=== PATIENT | female | born 1980 | race Caucasian/White ===

== ENCOUNTER → 2019-04-15 | Outpatient (CLI) | payer OTHER, SELFPAY ==
--- NOTE | 2019-04-15 08:02 | RAD_ITS ---
STUDY: AIR-CONTRAST UPPER GI SERIES AND SMALL BOWEL FOLLOW-THROUGH EXAMINATION. REASON FOR EXAM: Female, 38 years old. Epigastric pain and discomfort. FLUOROSCOPY TIME (if supplied): (3:24) minutes/seconds TECHNIQUE: The patient ingested barium. Multiple images of the esophagus, stomach and duodenum were obtained. Following this, a small bowel follow-through examination was performed. COMPARISON: None. FINDINGS: The esophagus is unremarkable. There is no evidence of obstruction. No evidence of gas esophageal reflux or mass lesion. The stomach and duodenum are unremarkable. There is no evidence of ulceration. No mass lesion is present. A small bowel follow-through examination was then obtained. The small bowel transit is normal. There is no evidence of intrinsic or extrinsic small bowel disease. The terminal ileum is unremarkable. RAD/Upper GI/w Small Bowel IMPRESSION: Unremarkable air contrast upper GI series and small bowel follow-through examination. Electronically Signed: Scott Copeland, at 12:33 EDT , Service support ,
== END | disposition home or self-care (01) ==
LOC: RAD 08:01
PROVIDERS: Family Provider Student in an Organized Health Care Education/Training Program; PCP Student in an Organized Health Care Education/Training Program; Referring Provider Nurse Practitioner Family; Visit Provider Nurse Practitioner Family
DX: R10.13 Epigastric pain (principal)
CPT/HCPCS: 74249

== ENCOUNTER → 2019-05-10 | Outpatient (CLI) | payer OTHER, SELFPAY ==
--- NOTE | 2019-05-10 11:40 | IMM_PTH ---
PATIENT: JANAY MARRERO LOC: [facility] U#:[id number] AGE/SX: 38/F ROOM: RE05/10/[address]: Dr. Enrike Fall MD : 1980 BED: DIS: 05/10/2019 SPEC #: [id number] RECD: 05/11/19 11:33 STATUS: MARYSE REQ #: [id number] BRENDA: 05/10/19 11:[address]: Enrike Fall DEPT: IMMUNOHISTOCHEMISTRY RECD BY: Nu Sumner ENTERED: 05/11/19 11:35 SP TYPE: IMMUNO OTHR DR: Dr. Cody So DO Tissues: B - Stomach, NOS Procedures: H Pylori (initial) PHYSICIAN & INSTITUTION [place] [id number] SPECIMEN INFORMATION: Tissue Source: B - Antral biopsy Clinical Info: K30 Specimen Number: [id number] CPT code: 28997 METHODOLOGY: Deparaffinized sections of prefer/formalin-fixed tissue or PAP/DQ stained slides are incubated with monoclonal/polyclonal antibodies/oligonucleotide probes. Localization is made via biotin free immunoperoxidase method. Appropriate controls are performed and reacted as expected. Results on target cell population are indicated in the following table: RESULTS: ANTIBODY / CLONE RESULT Block B H Pylori (polyclonal) negative These tests were developed and their performance characteristics determined by [facility]. They may not have been cleared or approved by the U.S. Food and Drug Administration. The FDA has determined that such clearance or approval is not necessary. INTERPRETATION: B. Antral biopsy: Negative for Helicobacter pylori organisms. SJ:bnoi 05/12/19
--- NOTE | 2019-05-10 11:40 | EGD_PTH ---
PATIENT: JANAY MARRERO LOC: [facility] U#:[id number] AGE/SX: 38/F ROOM: RE05/10/[address]: Dr. Enrike Fall MD : 1980 BED: DIS: 05/10/2019 SPEC #: [id number] RECD: 05/10/19 17:11 STATUS: MARYSE REGirma #: [id number] BRENDA: 05/10/19 11:[address]: Enrike Fall DEPT: SURGICAL PATHOLOGY RECD BY: Gumaro Nelson ENTERED: 05/11/19 09:34 SP TYPE: EGD BIOPSY OTHR DR: Dr. Cody So DO Tissues: A - Jejunum, NOS B - Gastric mucous membrane C - Gastric mucous membrane D - Gastric mucous membrane Procedures: Special Stain Group II Surgery Specimen Level IV Alcian Blue/PAS (control) HEADER OPERATION: EGD with biopsy PRE-OP DIAGNOSIS: K30 TISSUE SUBMITTED: A - Jejunal biopsy, B - Antral biopsy H/H, C - Gastric polyp, D - GE junction biopsy MICROSCOPIC DIAGNOSIS A. Jejunal biopsy: Fragments of duodenal mucosa, no pathologic diagnosis. B. Antral biopsy: Mild gastritis. See microscopic description and comment. C. Gastric polyp, biopsy: Consistent with fundic gland polyp. D. GE junction, biopsy: A fragment of gastroesophageal mucosa with chronic inflammation, congestion and hemorrhage. Intestinal metaplasia (goblet cell metaplasia) is not identified. See comment. SJ:boni 05/12/19 COMMENT B. The results of immunohistochemistry for Helicobacter pylori will be reported separately ([id number]). D. Alcian blue/PAS stain with matched control is used in the evaluation of the specimen. MICROSCOPIC DESCRIPTION Slides are reviewed. B. The specimen shows fragments of gastric mucosa with chronic inflammatory cell infiltrates in the lamina propria consisting of lymphocytes and plasma cells, consistent with mild chronic gastritis. GROSS DESCRIPTION A - Received in fixative is one container labeled with the patient's name and designated jejunal biopsy. The specimen consists of two irregular fragments of light rincon soft tissue that in aggregate measure 0.4 x 0.2 x 0.1 cm. The specimen is totally submitted in one cassette. B - Received in fixative is one container labeled with the patient's name and designated antral biopsy. The specimen consists of one irregular fragment of light rincon soft tissue that measures 0.4 x 0.3 x 0.1 cm. The specimen is totally submitted in one cassette. C - Received in fixative is one container labeled with the patient's name and designated gastric polyp. The specimen consists of one irregular fragment of light rincon soft tissue that measures 0.3 x 0.3 x 0.1 cm. The specimen is totally submitted in one cassette. D - Received in fixative is one container labeled with the patient's name and designated GE junction biopsy. The specimen consists of one irregular fragment of light rincon soft tissue that measures 0.4 x 0.2 x 0.1 cm. The specimen is totally submitted in one cassette. / SJ:rg 05/11/19 TC:3 CPT: 72806 x4, 93725
== END | disposition home or self-care (01) ==
LOC: LABSPEC 05-11 08:21
PROVIDERS: Family Provider Student in an Organized Health Care Education/Training Program; PCP Student in an Organized Health Care Education/Training Program; Referring Provider Surgery; Visit Provider Surgery
DX: K52.9 Noninfective gastroenteritis and colitis, unspecified (principal)
CPT/HCPCS: 88305; 88313; 88342

== ENCOUNTER → 2024-04-06 | Outpatient (CLI) | payer OTHER, SELFPAY ==
[2024-04-06 12:22] LABS: Vitamin D,25 Hydroxy 51.8 ng/mL
[2024-04-06 12:23] LABS: Absolute Lymphocyte Count 1.77 X10^3/uL (0.83-4.51); Absolute Neutrophil Count 3.7 X10^3/uL (2.0-7.7); Basophil# 0.04 X10^3/uL; Basophil% 0.7 % (0-1); Eosinophil# 0.06 X10^3/uL; Hematocrit 39.6 % (37-47); Lymphocyte # 1.77 X10^3/ul (0.83-4.51); Lymphocyte % 28.9 % (19-41); Mean Corp Hgb Conc 32.8 g/dL (32-36); Mean Corpuscular Hgb 29.6 pg (27.0-32.0); Mean Corpuscular Volume 90.2 fL (81-99); Mean Platelet Vol. 9.5 fl (6.2-12.0); Monocyte# 0.56 X10^3/uL; Monocyte% 9.2 % (0-10); NRBC Flagged by Analyzer 0 % (0-5); Neutrophil # 3.67 X10^3/uL (2.7-7.7); Neutrophil % 59.9 % (47-70); Platelet Count 304 K/mm3 (150-450); RBC Distribution Width CV 13.1 % (11.6-14.6); Red Blood Count 4.39 M/mm3 (4.2-5.4); White Blood Count 6.1 K/mm3 (4.4-11.0)
[2024-04-06 12:45] LABS: AST(SGOT) 15 U/L (15-37); Alanine Aminotransfer ALT/SGPT 26 U/L (13-56); Albumin, Serum 3.6 g/dL (3.2-5.0); Alkaline Phosphatase 85 U/L (45-117); Anion Gap 6 (5-15); BUN 12 mg/dL (7-18); BUN/Creat Ratio 12.8 RATIO (10-20); Calcium,Total 8.6 mg/dL (8.5-10.1); Chloride 107 mmol/L (98-107); Cholesterol 187 mg/dL (200); Creatinine, Serum 0.94 mg/dL (0.55-1.02); EST Glomerular Filtration Rate 69 mL/min (>60); Est Glom Filt Rate - Afr Amer 83 mL/min (>60); Ferritin 29 ng/mL (8-252); Globulin 3.7 g/dL (2.2-4.2); Glucose 94 mg/dL (74-106); High Density Lipoprotein 40 mg/dL; Iron 47 ug/dL (50-170); Iron Binding Capacity,Total 338 ug/dL (250-450); PERCENT IRON SATURATION 13.9 % (15.0-55.0); Protein, Total 7.3 g/dL (6.4-8.2); Sodium Level 138 mmol/L (136-145); Thyroid Stim Hormone (TSH) 1.91 uIU/mL (0.358-3.74); Triglycerides 135 mg/dL; Very Low Density Lipoprotein 27 mg/dL (5-40)
== END | disposition home or self-care (01) ==
LOC: BIMLAB 08:18
PROVIDERS: PCP Internal Medicine; Referring Provider Internal Medicine; Visit Provider Internal Medicine
DX: R53.83 Other fatigue (principal); K21.9 Gastro-esophageal reflux disease without esophagitis; E56.9 Vitamin deficiency, unspecified; Z13.6 Encounter for screening for cardiovascular disorders
CPT/HCPCS: 36415; 80053; 80061; 82306; 82728; 83540; 83550; 84443; 85025

== ENCOUNTER → 2024-07-12 | Outpatient (CLI) | payer OTHER, SELFPAY ==
--- NOTE | 2024-07-12 07:30 | BI_ITS ---
MAMMOGRAPHY - BILATERAL SCREENING 3-D TOMOSYNTHESIS REASON FOR EXAM: Female, 44 years old. screening PERTINENT HISTORY: No significant family history. TECHNIQUE: 2-D mammograms and 3-D Tomosynthesis of the breast (s) were performed. CAD was performed. COMPARISON: 12/05/2021 FINDINGS: The breast composition is Extermely dense tissue. Scattered benign calcifications are seen. No dense spiculated masses or suspicious microcalcifications are identified. No architectural distortion is identified. There is no skin thickening or retraction. There has been no significant change since the prior study. BI/SCRN MAMM (CAD)W/ARMIN BILAT IMPRESSION: No mammographic signs of malignancy. Routine yearly mammograms recommended. ASSESSMENT CATEGORY: BIRADS Category 1: Negative. A letter regarding these results will be sent to the patient by the facility within 30 days. FOLLOW UP RECOMMENDATION: Yearly follow up mammogram recommended. (A) Approximately 10% of breast cancers are not detected by mammography. A normal mammogram should not delay biopsy of a clinically suspicious abnormality. Electronically Signed: Enrike Boland MD at 8:33 EDT ,
== END | disposition home or self-care (01) ==
LOC: OPBI 07:30
PROVIDERS: PCP Internal Medicine; Referring Provider Internal Medicine; Visit Provider Internal Medicine
DX: Z12.31 Encounter for screening mammogram for malignant neoplasm of breast (principal)
CPT/HCPCS: 77063; 77067

== ENCOUNTER → 2024-09-01 | Outpatient (CLI) | payer OTHER, SELFPAY ==
[2024-09-07 16:06] LABS: HPV APTIMA, High Risk Negative (Negative)
== END | disposition home or self-care (01) ==
LOC: LABSPEC 10:48
PROVIDERS: PCP Internal Medicine; Referring Provider Nurse Practitioner Family; Visit Provider Nurse Practitioner Family
DX: Z12.4 Encounter for screening for malignant neoplasm of cervix (principal)
CPT/HCPCS: 87624; 88175; G0145

== ENCOUNTER → 2024-09-13 | Outpatient (CLI) | payer OTHER, SELFPAY ==
--- NOTE | 2024-09-13 12:27 | US_ITS ---
STUDY: ULTRASOUND OF THE FEMALE PELVIS - COMPLETE REASON FOR EXAM: Female, 44 years old. pelvic pain LMP: 09/06/2024 TECHNIQUE: Transabdominal and Transvaginal TECHNICAL QUALITY: Adequate. COMPARISON: None. FINDINGS: The uterus is retroflexed and is in a midline position. The uterus measures 7.8 x 4.9 x 4.0 cm. Normal uterine cervix. The endometrium measures 9 mm in thickness, and is hyperechoic. There is no demonstrated endometrial mass. There is no demonstrated myometrial mass. I.U.D. - The patient does not have an I.U.D. The right ovary is visualized. The right ovary measures 3.1 x 2.2 x 2.4 cm. There is no right ovarian cyst or ovarian mass. There is no visualized right adnexal mass or complex lesion. There is normal arterial and normal venous vascularity. The left ovary is visualized. The left ovary measures 3.2 x 2.3 x 2.2 cm. There is no left ovarian cyst or ovarian mass. There is no visualized left adnexal mass or complex lesion. There is normal arterial and normal venous vascularity. There is no fluid in the cul-de-sac. The pre void volume of the bladder was ml. The post void volume of the bladder was ml. Polycystic ovary disease: No. US/Pelvic w/ Transvaginal IMPRESSION: Normal female pelvis. Electronically Signed: Enrike Bloand MD at 13:26 EST ,
--- NOTE | 2024-09-13 12:27 | US_ITS ---
STUDY: ULTRASOUND BREAST - RIGHT REASON FOR EXAM: Female, 44 years old. Lateral breast lumps. Prior biopsy. TECHNIQUE: Axial and longitudinal images of the RIGHT breast were performed with a high resolution ultrasound transducer. # OF IMAGES: [id number] COMPARISON: None. FINDINGS: RIGHT Breast: There is a 8mm by 8 mm x 6 mm hypoechoic nodule at the 10:00 position of the breast at 1 cm from the nipple. A tissue clip marker is seen within it. There is also evidence of a 1 cm x 0.9 cm x 0.7 cm hypoechoic nodule with central internal echoes at the 9:00 position of the breast at 2 cm from the nipple. This is suggestive of a lymph node. US/Breast Limited Unilateral IMPRESSION: 8 mm x 8 mm x 6 mm hypoechoic nodule at the 10:00 position of the breast is 7 cm from nipple. A biopsy clip is seen within it. ASSESSMENT CATEGORY: BIRADS Category 2: Benign. A letter regarding these results will be sent to the patient by the facility within 30 days. Electronically Signed: Scott Copeland MD at 15:16 EST ,
== END | disposition home or self-care (01) ==
LOC: OPUS 12:23
PROVIDERS: PCP Internal Medicine; Referring Provider Nurse Practitioner Family; Visit Provider Nurse Practitioner Family
DX: R10.2 Pelvic and perineal pain (principal); N63.12 Unspecified lump in the right breast, upper inner quadrant
CPT/HCPCS: 76642; 76830; 76856

== ENCOUNTER 2024-11-15 08:32 | Outpatient (CLI) | payer OTHER, SELFPAY ==
[2024-11-15 09:47] LABS: Erythrocyte Sedimentation Rate 7 mm/hr (0-30)
[2024-11-15 10:23] LABS: CRP 3.47 mg/L (0.0-3.0)
[2024-11-19 17:07] LABS: Alternaria alternata <0.10 kU/L (Class 0); Beef <0.10 kU/L (Class 0); Bermuda Grass <0.10 kU/L (Class 0); Bluegrass, Kentucky <0.10 kU/L (Class 0); Cat Hair/Dander, Standard <0.10 kU/L (Class 0); Chocolate <0.10 kU/L (Class 0); Codfish <0.10 kU/L (Class 0); Corn <0.10 kU/L (Class 0); D farinae Mite <0.10 kU/L (Class 0); D pteronyssinus <0.10 kU/L (Class 0); Dog Epithelia <0.10 kU/L (Class 0); Egg, Whole <0.10 kU/L (Class 0); Elm, American White <0.10 kU/L (Class 0); Milk (Cow) <0.10 kU/L (Class 0); Mouse Urine <0.10 kU/L (Class 0); Mussels <0.10 kU/L (Class 0); Oak, White <0.10 kU/L (Class 0); Peanut <0.10 kU/L (Class 0); Plantain, English <0.10 kU/L (Class 0); Pork <0.10 kU/L (Class 0); Ragweed, Short/Common <0.10 kU/L (Class 0); Salmon <0.10 kU/L (Class 0); Shrimp <0.10 kU/L (Class 0); Soybean <0.10 kU/L (Class 0); Tuna <0.10 kU/L (Class 0); Wheat <0.10 kU/L (Class 0)
[2024-11-20 15:07] LABS: Albumin 3.5 g/dL (2.9-4.4); Alpha-1-Globulins 0.2 g/dL (0.0-0.4); Alpha-2-Globulins 0.9 g/dL (0.4-1.0); Cytoplasmic Ab (C-ANCA) <1:20 titer (Neg:<1:20); Endomysial Antibody IgA Negative (Negative); Gamma Globulin 1.1 g/dL (0.4-1.8); Gastrin, Serum 231 pg/mL (0-115); Immunoglobulin A 275 mg/dL (87-352); Immunoglobulin E 7 IU/mL (6-495); Immunoglobulin G 977 mg/dL (586-1602); Immunoglobulin M 143 mg/dL (26-217); PROEL- TOTAL PROTEIN 6.9 g/dL (6.0-8.5); Perinuclear Ab (P-ANCA) <1:20 titer (Neg:<1:20); t-Transglutaminase IgA <2 U/mL (0-3)
== END 2024-11-15 23:59 | disposition home or self-care (01) ==
PROVIDERS: PCP Internal Medicine; Referring Provider Internal Medicine Gastroenterology; Visit Provider Internal Medicine Gastroenterology
DX: K21.9 Gastro-esophageal reflux disease without esophagitis (principal)
CPT/HCPCS: 36415; 82784; 82785; 82941; 83516; 84165; 85652; 86003; 86005; 86037; 86140; 86255; 86334

== ENCOUNTER → 2025-02-06 | Outpatient (CLI) | payer OTHER, SELFPAY ==
--- NOTE | 2025-02-06 10:20 | NM_ITS ---
PROCEDURE: GASTRIC EMPTYING STUDY 02/06/2025 REASON FOR EXAM: REFRACTORY GERD COMPARISON: None. TECHNIQUE: The patient ingested a standard meal of oatmeal and technetium labeled sulfur colloid and water. There was no vomiting postprandially. Anterior and posterior planar images of the upper abdomen were obtained for 1 minute immediately following the meal at 1h, 2h and 4h if more than 10% of the activity persisted within the stomach. Regions of interest were drawn, and a geometric mean was used to calculate a [id number]-tpira. RADIOPHARMACEUTICAL: 1.2 mCi of technetium labeled sulfur colloid. FINDINGS: Percent activity remaining in stomach: 1 hour 71 % (normal 37-90%) NM/Gastric Emptying Study IMPRESSION: Normal gastric emptying study. Reading Location: [id number]
== END | disposition home or self-care (01) ==
PROVIDERS: PCP Internal Medicine; Referring Provider Internal Medicine Gastroenterology; Visit Provider Internal Medicine Gastroenterology
DX: K21.9 Gastro-esophageal reflux disease without esophagitis (principal)
CPT/HCPCS: 78264; A9541

== ENCOUNTER 2025-02-23 08:57 | Day surgery (SDC) | payer OTHER, SELFPAY ==
[2025-02-23] VITALS (8 sets, daily range): BP systolic 77–118; BP diastolic 45–84; PULSE 75–88; RESP 16; TEMP 36–37.2; O2SAT 96–100; BMI 30.8
[2025-02-23 09:18] LABS: Internal QC Validated? YES +Cl - CLEAR BKGD; Pregnancy, Urine Negative Negative
--- NOTE | 2025-02-23 09:31 | PCM.HP.STD ---
HPI - General General Date of Admission: 02/23/25 Date of Service: 02/23/25 Chief Complaint: Screening colonoscopy HPI Narrative JANAY MARRERO, is a 44 F who presents for screening colonoscopy. *[facility] established 2.18.25 pt presents today for evaluation prior to colonoscopy. Pt states I'm 44 so it's time for a colonoscopy. Pt reports that she had an EGD in 2019 with [facility] when she was diagnosed with acid reflux; has been taking PRN Nexium. Pt reports alternating bowel movements; reports constipation when she doesn't drink enough and diarrhea when she eats certain foods. Pt reports she is unsure which foods she has sensitivities to. Pt reports a daily bm. Pt reports increased bloating in the evening due to being unable to burp. ROS Const Constitutional: Positive for fatigue; No fever(s) or weight change ENT ENT: No difficulty swallowing Gastro GI: Positive for bloating, constipation, diarrhea, heartburn and excessive flatus; No abdominal pain, belching, change in bowel habits, change in stool character, coffee ground emesis, cramping, difficulty swallowing, feeling full early, incontinent of stools, Vomiting blood/hematemesis, Blood in stool, loose stools, Black,tarry stools, nausea/dyspepsia, pain with swallowing, vomiting or other Musc Musculoskeletal: No joint pain Skin Skin: No yellowing of the eye or itchy eyes Psych Psychiatric: Positive for anxiety and No depression Endo Endocrine: Positive for fatigue; No weight change Aller/Imm Allergy/Immunologic: No itchy eyes Brent/Lymp Hematologic/Lymphatic: No easy bleeding or easy bruising Exam Const General: cooperative, healthy appearing, no acute distress, well developed, not diaphoretic and not ill appearing Nutritional Appearance: well nourished Orientation: alert and oriented x3 Limitations: mental status not altered [facility] Head: normal to inspection, normocephalic and atraumatic Ears: hearing grossly normal bilaterally Face and sinus: normal facial exam Mouth: oral mucosae normal and moist mucous membranes Teeth and gingiva: dentition normal Throat: posterior oropharynx normal Eyes Conjunctivae: conjunctivae normal Sclera: sclerae normal Pupils: PERRL Chest Chest palpation & inspection: normal inspection of the chest Resp Effort & Inspection: normal respiratory effort, able to speak in complete sentences, no audible wheezes and no cough Auscultation: Bilateral: Clear to Auscultation Cardio Rate: regular rate Rhythm: regular rhythm Heart Sounds: S1 normal, S2 normal and no murmurs GI Inspection: non-distended Auscultation: normal bowel sounds Palpation: soft, no hepatosplenomegaly and nontender Skin General: no rashes or lesions noted and dry skin Wounds: no wounds Neuro General: patient alert and patient oriented x3 Cranial Nerves: PERRL Speech: speech normal Extrem General: normal to inspection and no edema Psych Appearance: grossly normal Affect: normal affect Attitude: cooperative Assessment and Plan Assessment and Plan (1) GERD (gastroesophageal reflux disease): Status: Acute (2) Screening for colon cancer: Status: Acute Plan: Is a very pleasant 44-year-old with past medical history of gastroesophageal reflux disease. She underwent an upper endoscopy back in 2019 and was told that she had LA grade B erosive esophagitis. Since then she has been on intermittent Nexium. She does not know if she has any delayed gastric emptying or hiatal hernia. She does suspect that she had a least a lower esophageal sphincter that was lax. She does also have some sensitivities particularly with onions, spicy foods and processed foods. Her weight has been about the same. She has no family history of inflammatory bowel disease or autoimmune disease affecting her GI tract. She has no family history of esophageal cancer. She does not smoke. She is also here to set up a screening colonoscopy. She does have some intermittent problems with alternating bowel habits but is mostly secondary to lack of proper fluid intake on a daily basis. She has had no change in bowel habits. She has had no bleeding per rectum. She denies any severe constipation or diarrhea. Her weight has been stable. She has no alarm signs at this time. She will undergo an upper endoscopy to evaluate upper GI tract for Leggett's esophagus, structural abnormality such as hiatal hernia, erosive esophagitis, gastroparesis and possible celiac disease. I will also get biochemical testing including food allergy testing, globulins, ESR, CRP, GALA plus protein electrophoresis and a gastric emptying study. She will also undergo colonoscopy. She was explained alternatives, risk and benefits include understanding bleeding on touch, sepsis complicated for surgery . She will have an ASA of 3. Orders: Orders GALA + Protein Elect, Serum Today K21.9 - Gastro-esophageal reflux disease without esophagitis Celiac Disease Profile Today K21.9 - Gastro-esophageal reflux disease without esophagitis ANCA Today K21.9 - Gastro-esophageal reflux disease without esophagitis CRP Today K21.9 - Gastro-esophageal reflux disease without esophagitis Erythrocyte Sed Rate Today K21.9 - Gastro-esophageal reflux disease without esophagitis Immunoglobulins G/A/M/E Today K21.9 - Gastro-esophageal reflux disease without esophagitis Gastrin, Serum Today K21.9 - Gastro-esophageal reflux disease without esophagitis Allergen, Food Profile 14 Today K21.9 - Gastro-esophageal reflux disease without esophagitis Allergen, Mini-Rast Today K21.9 - Gastro-esophageal reflux disease without esophagitis Gastric Emptying Study Today K21.9 - Gastro-esophageal reflux disease without esophagitis [facility] Medical History Wears contact lenses Wears glasses Anxiety Bite from insect Low iron Restless legs Gastric reflux Chronic cough Non-smoker History of stress test History of irregular heartbeat Vitamin deficiency Hives GERD (gastroesophageal reflux disease) Gastrointestinal complaints Breast lump (09/12/19) Bone fracture Back problem Allergies Home Medications ?Medication ?Instructions ?Recorded ?Last Taken ?Type cholecalciferol (vitamin D3) 25 25 mcg PO DAILY 04/05/24 Unknown History mcg (1,000 unit) capsule ferrous sulfate 325 mg (65 mg 325 mg PO DAILY 04/05/24 Unknown History iron) tablet (FeroSul) multivitamin (Daily Multi-Vitamin 1 tab PO DAILY 04/05/24 Unknown History tablet) esomeprazole magnesium 40 mg 40 mg PO DAILY PRN dyspepsia 11/15/24 Unknown History capsule,delayed release (Nexium) Allergy/AdvReac Type Severity Reaction Status Date / Time ranitidine Allergy Intermediate Hives Verified 02/17/25 16:08 Family History Mother Age: 77 Diabetes Osteoporosis Anesthesia complication low oxygen Hypertension Thyroid disorder Cancer multiple myeloma Central sleep apnea Father Age: 76 Diabetes High cholesterol Asthma Cancer prostate Grandmother Anemia Polymyalgia Diabetes Heart disease Brother Asthma Grandfather Heart disease Grandfather Myocardial infarction Heart disease Hypertension Cancer skin Ulcer Colon cancer Aunt Thyroid disorder Surgical History History of esophagogastroduodenoscopy (EGD) History of surgery H/O toe surgery History of breast biopsy (11/10/19) Social History adopted: No household members: spouse current occupational status: employed 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 [employer] pets and animals: Yes pets and animals: cat(s) leisure activities: exercise, games, reading and volunteer work sexually active: No Smoking Status: Never smoker Electronic Cigarette Use: not used alcohol intake: former details: is not allowed due to work substance use type: does not use well-balanced diet: about half the time caffeine: No eating out: 4 or more times/week during the past year weight has: remained stable what type of physical activity do you participate in: walking frequency: 3-4 times per week seatbelt use: always do you feel safe at home: Yes ROS Constitutional Constitutional: Denies fatigue, fever(s), poor appetite, weight gain or weight loss Gastrointestinal Gastrointestinal: Denies belching, bloating, change in bowel habits, change in stool character, chewing difficulty, coffee ground emesis, constipation, cramping, diarrhea, dyspepsia, dysphagia, early satiety, excessive flatus, fecal incontinence, heartburn, hematemesis, hematochezia, hemorrhoids, loose stools, melena, nausea, odynophagia, rectal bleeding, tenesmus, vomiting or weight changes Vital Signs Vital Signs Vital Signs: 02/23/25 09:19 02/23/25 09:19 Temperature 98.9 F Temperature Source Temporal Respiratory Rate 16 Respiratory Pattern Normal Blood Pressure 118/84 H Blood Pressure Mean 95 Blood Pressure Source Monitor Blood Pressure Position Semi-Fowlers Blood Pressure Location Right Arm Pulse Ox 100 Weight Weight: 185 lb 3.013 oz Body Mass Index (BMI) 30.8 Physical Exam Const alert, oriented x3, no apparent distress and healthy appearing General Appearance: cooperative GI normal to inspection, nondistended, normoactive bowel sounds, soft to palpation, non-tender and non-distended Percussion: normal to percussion Rectal Exam: deferred Results Lab / Micro Data Labs: Laboratory Results - last 24 hr 02/23/25 09:05: Urine Test Negative Assessment & Plan Assessment/Plan (1) Screening for colon cancer: PLAN: Assessment and Plan Assessment and Plan (1) GERD (gastroesophageal reflux disease): Status: Acute (2) Screening for colon cancer: Status: Acute Plan: Is a very pleasant 44-year-old with past medical history of gastroesophageal reflux disease. She underwent an upper endoscopy back in 2019 and was told that she had LA grade B erosive esophagitis. Since then she has been on intermittent Nexium. She does not know if she has any delayed gastric emptying or hiatal hernia. She does suspect that she had a least a lower esophageal sphincter that was lax. She does also have some sensitivities particularly with onions, spicy foods and processed foods. Her weight has been about the same. She has no family history of inflammatory bowel disease or autoimmune disease affecting her GI tract. She has no family history of esophageal cancer. She does not smoke. She is also here to set up a screening colonoscopy. She does have some intermittent problems with alternating bowel habits but is mostly secondary to lack of proper fluid intake on a daily basis. She has had no change in bowel habits. She has had no bleeding per rectum. She denies any severe constipation or diarrhea. Her weight has been stable. She has no alarm signs at this time. She will undergo an upper endoscopy to evaluate upper GI tract for Leggett's esophagus, structural abnormality such as hiatal hernia, erosive esophagitis, gastroparesis and possible celiac disease. I will also get biochemical testing including food allergy testing, globulins, ESR, CRP, GALA plus protein electrophoresis and a gastric emptying study. She will also undergo colonoscopy. She was explained alternatives, risk and benefits include understanding bleeding on touch, sepsis complicated for surgery . She will have an ASA of 3. Orders: Orders GALA + Protein Elect, Serum Today K21.9 - Gastro-esophageal reflux disease without esophagitis Celiac Disease Profile Today K21.9 - Gastro-esophageal reflux disease without esophagitis ANCA Today K21.9 - Gastro-esophageal reflux disease without esophagitis CRP Today K21.9 - Gastro-esophageal reflux disease without esophagitis Erythrocyte Sed Rate Today K21.9 - Gastro-esophageal reflux disease without esophagitis Immunoglobulins G/A/M/E Today K21.9 - Gastro-esophageal reflux disease without esophagitis Gastrin, Serum Today K21.9 - Gastro-esophageal reflux disease without esophagitis Allergen, Food Profile 14 Today K21.9 - Gastro-esophageal reflux disease without esophagitis Allergen, Mini-Rast Today K21.9 - Gastro-esophageal reflux disease without esophagitis Gastric Emptying Study Today K21.9 - Gastro-esophageal reflux disease without esophagitis
[2025-02-23] MEDS: Lactated Ringers 1,000 ML 15 ML IV (09:36)
--- NOTE | 2025-02-23 09:50 | PCM.PRE.AN2 ---
ASA Classification* ASA Classification ASA Classification: 2 (GERD, anemia) Assessment & Plan Anesthesia* Anesthesia Assessment Anesthesia Assessment: Discussed sedation and/or anesthesia options, risks, benefits, and alternatives with patient/parents/legal guardian/POA. Questions invited. The patient/parents/legal guardian/POA seems to understand and agrees to proceed with anesthesia plan. Reviewed the physical assessment, medical history, allergy history and patient home medications list prior to surgery/procedure/anesthetic and documented any changes. Performed airway and anesthesia risk assessments. Anesthesia Type Anesthesia Type: General History Source History Obtained from:: Patient and Chart Anesthesia Focused Assessment* Temperature: 98.9 F Pulse Rate: 82 Blood Pressure: 118/84 Respiratory Rate: 16 Pulse Ox: 100 Oxygen Delivery Method: Room Air Airway Assessment Mouth opens: >3 cm Mallampati Score: II Teeth Condition: Intact Neck Range of motion (ROM): Full ROM Focused Labs Anesthesia Preop lab: CBC WBC 6.1 K/mm3 (4.4-11.0) 04/06/24 08:18 04/06/24 RBC 4.39 M/mm3 (4.2-5.4) 04/06/24 08:18 04/06/24 Hgb 13.0 g/dL (12.0-15.0) 04/06/24 08:18 04/06/24 Hct 39.6 % (37-47) 04/06/24 08:18 04/06/24 Plt Count 304 K/mm3 (150-450) 04/06/24 08:18 04/06/24 CHEMISTRY Potassium 4.0 mmol/L (3.5-5.1) 04/06/24 08:18 04/06/24 Sodium 138 mmol/L (136-145) 04/06/24 08:18 04/06/24 BUN 12 mg/dL (7-18) 04/06/24 08:18 04/06/24 Creatinine 0.94 mg/dL (0.55-1.02) 04/06/24 08:18 04/06/24 Glucose 94 mg/dL (74-106) 04/06/24 08:18 04/06/24 TSH 1.91 uIU/mL (0.358-3.74) 04/06/24 08:18 04/06/24 COAG Urine Test Negative Negative 02/23/25 09:05 02/23/25 Pre-Assessment Diagnosis/Proposed Procedure Planned Operative Procedure(s): EGD, COLONOSCOPY Anesthesia History 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 When Was Last Pacemaker Check QUESTION #4 FULL TEXT: You/Your Family Experience fever (hyperthermia) with Anesthesia Last Oral Intake Last Oral intake: Last Oral Intake NPO since 06:00 02/23/25 09:19 Meds taken in AM with sips of No 02/23/25 09:19 water? 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 operator Female Yes 02/17/25 16:11 HX of Motion Sickness Yes 02/17/25 16:11 HX of N/V After Surgery No 02/17/25 16:11 Non-Smoker Yes 02/17/25 16:11 Duration of Surgery greater No 02/17/25 16:11 than 60 minutes Number of Risk Factors 3 02/17/25 16:11 PONV Score Moderate Risk 02/17/25 16:11 Height & Weight Height & Weight: Anesthesia: Height & Weight Height 5 ft 4.96 in 02/23/25 09:19 Weight: 84 kg 02/23/25 09:19 Body Mass Index (BMI) 30.8 02/23/25 09:19 Respiratory Assessment Respiratory Assessment - ribbon hanking machine operator: Respiratory Tract Infection Hx - ribbon hanking machine operator Hx Respiratory Tract Infection No 02/17/25 16:11 STOP Sleep Apnea STOP Sleep Apnea - ribbon hanking machine operator: STOP Sleep Apnea - ribbon hanking machine operator Hx Hypertension No 02/17/25 16:11 Hx Sleep Apnea No 02/17/25 16:11 CPAP BIPAP Do you snore loudly (louder Yes 02/17/25 16:11 than talking or can be heard Do you often feel tired/ No 02/17/25 16:11 fatigued/ sleepy during daytime? Has anyone observed you stop No 02/17/25 16:11 breathing during sleep? STOP Results Negative 02/17/25 16:11 QUESTION #5 FULL TEXT : Do you snore loudly (louder than talking or can be heard through closed doors)? 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 Specify any problems Hx of Preganancy in last 3 No 02/17/25 16:11 Months Nurse Filling Out Transfusion MGRIFFITH 02/17/25 16:11 & Questions: Date: 02/17/25 02/17/25 16:11 Time: 16:13 02/17/25 16:11 Patient unable to answer at this time (ie. confused, unrespo /Reproduction History /Reproductive History - ribbon hanking machine operator: /Reproductive Hx- ribbon hanking machine operator Hx Now No 02/17/25 16:11 Gestational Age (in weeks): EDC: Hx Hx Para Hx Section SAB No 02/17/25 16:11 Active Medications Active Medications: Current Medications Generic Name Dose Route Start Last Admin Trade Name Freq PRN Reason Stop Dose Admin Lactated Ringer's 1,000 mls @ 15 mls/hr 02/23/25 09:45 02/23/25 09:36 IV 15 mls/hr .Q48H JAMES Administration PFSH Medical History Wears contact lenses Wears glasses Anxiety Bite from insect Low iron Restless legs Gastric reflux Chronic cough Non-smoker History of stress test History of irregular heartbeat Vitamin deficiency Hives GERD (gastroesophageal reflux disease) Gastrointestinal complaints Breast lump (09/12/19) Bone fracture Back problem Allergies Home Medications ?Medication ?Instructions ?Recorded ?Last Taken ?Type cholecalciferol (vitamin D3) 25 25 mcg PO DAILY 04/05/24 Unknown History mcg (1,000 unit) capsule ferrous sulfate 325 mg (65 mg 325 mg PO DAILY 04/05/24 Unknown History iron) tablet (FeroSul) multivitamin (Daily Multi-Vitamin 1 tab PO DAILY 04/05/24 Unknown History tablet) esomeprazole magnesium 40 mg 40 mg PO DAILY PRN dyspepsia 11/15/24 Unknown History capsule,delayed release (Nexium) Allergy/AdvReac Type Severity Reaction Status Date / Time ranitidine Allergy Intermediate Hives Verified 02/17/25 16:08 Family History Mother Age: 77 Diabetes Osteoporosis Anesthesia complication low oxygen Hypertension Thyroid disorder Cancer multiple myeloma Central sleep apnea Father Age: 76 Diabetes High cholesterol Asthma Cancer prostate Grandmother Anemia Polymyalgia Diabetes Heart disease Brother Asthma Grandfather Heart disease Grandfather Myocardial infarction Heart disease Hypertension Cancer skin Ulcer Colon cancer Aunt Thyroid disorder Surgical History History of esophagogastroduodenoscopy (EGD) History of surgery H/O toe surgery History of breast biopsy (11/10/19) Social History adopted: No household members: spouse current occupational status: employed 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 [employer] pets and animals: Yes pets and animals: cat(s) leisure activities: exercise, games, reading and volunteer work sexually active: No Smoking Status: Never smoker Electronic Cigarette Use: not used alcohol intake: former details: is not allowed due to work substance use type: does not use well-balanced diet: about half the time caffeine: No eating out: 4 or more times/week during the past year weight has: remained stable what type of physical activity do you participate in: walking frequency: 3-4 times per week seatbelt use: always do you feel safe at home: Yes Review of Systems (Anesthesia) ROS Narrative System reviewed and no additional complaints, except as documented.
--- NOTE | 2025-02-23 10:00 | EGD_PTH ---
PATIENT: JANAY MARRERO LOC: EN U#:[id number] AGE/SX: 44/F ROOM: RE02/23/[address]: Dr. Hussain Monroe DO : 1980 BED: DIS: 02/23/2025 SPEC #: [id number] RECD: 02/23/25 12:50 STATUS: MARYSE REGirma #: [id number] BRENDA: 02/23/25 10:[address]: Hussain Monroe DEPT: SURGICAL PATHOLOGY RECD BY: Stanley Naik ENTERED: 02/23/25 14:00 SP TYPE: EGD BIOPSY OT DR: Dr. Arianna Robert MD Tissues: A - Esophagus, NOS B - Duodenum, NOS C - COLON BIOPSY Procedures: Special Stain Group I Surgery Specimen Level IV GMS Stain (control) HEADER OPERATION: Colonosocpy, EGD, biopsy PRE-OP DIAGNOSIS: GERD, screening for colon cancer TISSUE SUBMITTED: A- Distal esophagus biopsy, B- Duodenum biopsy, C- Hepatic flexure polyp biopsy MICROSCOPIC DIAGNOSIS A. Esophagus, distal, biopsy: * Squamous mucosa with mild acute inflammation and reactive changes. * PASD stain negative for fungal organisms. B. Small bowel, duodenum, biopsy: * Normal villous morphology with Rose gland hyperplasia. * Negative for increased intraepithelial lymphocytes. C. Colon, hepatic flexure, polyp, biopsy: * Tubular adenoma. MICROSCOPIC DESCRIPTION Slides are reviewed. GROSS DESCRIPTION A. Received in formalin in a container labeled with the patient's name, date of , and distal esophagus biopsy are 3 rincon-pink fragments of mucosal tissue each measuring 0.3 x 0.3 x 0.3 cm. Submitted in toto in A1. B. Received in formalin in a container labeled with the patient's name, date of , and duodenum biopsy are 2 rincon-pink fragments of mucosal tissue measuring 0.4 x 0.3 x 0.2 cm and 0.7 x 0.2 x 0.2 cm. Submitted in toto in B1. C. Received in formalin in a container labeled with the patient's name, date of , and hepatic flexure polyp biopsy is a 0.4 x 0.3 x 0.3 cm fragment of rincon-pink mucosal tissue. Submitted in toto in C1. [facility] 02-23-2025 CPT:53815n8,91061
--- NOTE | 2025-02-23 10:47 | PCM.POST.ANE ---
Anesthesia: Postop Eval I Current Vital Signs Temperature: 97 F Pulse Rate: 80 Blood Pressure: 77/45 Respiratory Rate: 16 Pulse Ox: 97 Oxygen Delivery Method: Room Air Assessment Airway patent: Yes Spontaneous unlabored respirations: Yes Mental status: Awake and Calm nausea: No Vomiting: No Anesthesia Complication: No Fluid Hydration Crystalloid volume administer (ml): 500 Total IV fluid infused: 500 Progress Note Anesthesia document: Postop Eval 1 completed: Yes
--- NOTE | 2025-02-23 10:53 | POSTOPAN2_ITS ---
Anesthesia Postop Eval I Sum Postop Eval Completion status Anesthesia document: Postop Eval 1 completed: Yes Anesthesia Postop Eval I Summary Anesthesia Postop Eval I Summary: Anesthesia Postop Eval I: Assessment Summary Airway patent Yes 02/23/25 10:48 APPLICATIONS COORDINATOR.MDOT Spontaneous unlabored Yes 02/23/25 10:48 APPLICATIONS COORDINATOR.MDOT respirations Mental status Awake,Calm 02/23/25 10:48 APPLICATIONS COORDINATOR.MDOT nausea No 02/23/25 10:48 APPLICATIONS COORDINATOR.MDOT Vomiting No 02/23/25 10:48 APPLICATIONS COORDINATOR.MDOT Anesthesia Postop Eval I: Fluid Summary Crystalloid volume administer 500 02/23/25 10:48 APPLICATIONS COORDINATOR.MDOT (ml) Colloids volume administered ( ml) Blood Product volume administered (ml) Total IV fluid infused 500 02/23/25 10:48 APPLICATIONS COORDINATOR.MDOT Anesthesia Postop Eval I: Summary Notes Anesthesia Complication No 02/23/25 10:48 APPLICATIONS COORDINATOR.MDOT Anesthesia Complication Comment: Post-operative progress note Anesthesia: Postop Eval II Evaluation Mental status: Awake and Calm Pain Level: 0 nausea: No Vomiting: No Complications Anesthesia Complication: No
--- NOTE | 2025-02-23 10:53 | PCM.POSTANE2 ---
Anesthesia Postop Eval I Sum Postop Eval Completion status Anesthesia document: Postop Eval 1 completed: Yes Anesthesia Postop Eval I Summary Anesthesia Postop Eval I Summary: Anesthesia Postop Eval I: Assessment Summary Airway patent Yes 02/23/25 10:48 INFECTION CONTROL SPECIALIST.MDOT Spontaneous unlabored Yes 02/23/25 10:48 INFECTION CONTROL SPECIALIST.MDOT respirations Mental status Awake,Calm 02/23/25 10:48 INFECTION CONTROL SPECIALIST.MDOT nausea No 02/23/25 10:48 INFECTION CONTROL SPECIALIST.MDOT Vomiting No 02/23/25 10:48 INFECTION CONTROL SPECIALIST.MDOT Anesthesia Postop Eval I: Fluid Summary Crystalloid volume administer 500 02/23/25 10:48 INFECTION CONTROL SPECIALIST.MDOT (ml) Colloids volume administered ( ml) Blood Product volume administered (ml) Total IV fluid infused 500 02/23/25 10:48 INFECTION CONTROL SPECIALIST.MDOT Anesthesia Postop Eval I: Summary Notes Anesthesia Complication No 02/23/25 10:48 INFECTION CONTROL SPECIALIST.MDOT Anesthesia Complication Comment: Post-operative progress note Anesthesia: Postop Eval II Evaluation Mental status: Awake and Calm Pain Level: 0 nausea: No Vomiting: No Complications Anesthesia Complication: No
--- NOTE | 2025-02-23 10:59 | OP.CCLET_ITS ---
02/23/2025 Arianna Robert Md Re : Upper GI endoscopy procedure for Jenae Rodriguez Dear Yesica This procedure was performed on January. My impressions and recommendations are as follows: Impressions : - Non-severe reflux esophagitis with no bleeding. Biopsied. - No gross lesions in the entire stomach. - Erythematous duodenopathy. Biopsied. Recommendations : - Discharge patient to home. - Resume previous diet. - Continue present medications. - Await pathology results. My findings are described in the full procedure note, which is enclosed. If I can be of further assistance, please feel free to contact me at . Sincerely, Hussain Monroe, 02/23/2025 10:58:58 AM This report has been signed electronically.
--- NOTE | 2025-02-23 10:59 | OP.EGD_ITS ---
Patient Name: Jenae Rodriguez Procedure Date: 02/23/2025 10:13 AM Date of : 1980 Age: 44 Procedure: Upper GI endoscopy Indications: Heartburn Providers: Hussain Monroe DO Referring MD: Arianna Robert Md Medicines: Monitored Anesthesia Care Patient Profile: This is a 44 year old female. Refer to note in patient chart for documentation of history and physical. Patient has symptoms of acute heartburn and chronic heartburn. Complications: No immediate complications. Procedure: Pre-Anesthesia Assessment: - Prior to the procedure, a History and Physical was performed, and patient medications and allergies were reviewed. The patient is competent. The risks and benefits of the procedure and the sedation options and risks were discussed with the patient. All questions were answered and informed consent was obtained. Patient identification and proposed procedure were verified by the physician in the pre-procedure area. Mental Status Examination: alert and oriented. Airway Examination: normal oropharyngeal airway and neck mobility. Respiratory Examination: clear to auscultation. CV Examination: normal. Prophylactic Antibiotics: The patient does not require prophylactic antibiotics. Prior Anticoagulants: The patient has taken no anticoagulant or antiplatelet agents except for NSAID medication. ASA Grade Assessment: II - A patient with mild systemic disease. After reviewing the risks and benefits, the patient was deemed in satisfactory condition to undergo the procedure. The anesthesia plan was to use monitored anesthesia care (MAC). Immediately prior to administration of medications, the patient was re-assessed for adequacy to receive sedatives. The heart rate, respiratory rate, oxygen saturations, blood pressure, adequacy of pulmonary ventilation, and response to care were monitored throughout the procedure. The physical status of the patient was re-assessed after the procedure. After obtaining informed consent, the endoscope was passed under direct vision. Throughout the procedure, the patient's blood pressure, pulse, and oxygen saturations were monitored continuously. The Colonoscope was introduced through the mouth, and advanced to the third part of the duodenum. Small bowel enteroscopy was deemed necessary. The upper GI endoscopy was accomplished without difficulty. The patient tolerated the procedure well. Scope In: 10:24:49 AM Scope Out: 10:28:55 AM Total Procedure Duration Time 0 hours 4 minutes 6 seconds Findings: Non-severe esophagitis with no bleeding was found 34 to 38 cm from the incisors. Biopsies were taken with a cold forceps for histology. Verification of patient identification for the specimen was done. Estimated blood loss was minimal. No gross lesions were noted in the entire examined stomach. Patchy mildly erythematous mucosa without active bleeding and with no stigmata of bleeding was found in the duodenal bulb. Biopsies were taken with a cold forceps for histology. Verification of patient identification for the specimen was done. Estimated blood loss was minimal. Impression: - Non-severe reflux esophagitis with no bleeding. Biopsied. - No gross lesions in the entire stomach. - Erythematous duodenopathy. Biopsied. Recommendation: - Discharge patient to home. - Resume previous diet. - Continue present medications. - Await pathology results. Procedure Code(s): --- Professional --- 41393, Small intestinal endoscopy, enteroscopy beyond second portion of duodenum, not including ileum; with biopsy, single or multiple CPT copyright 2021 [employer]. All rights reserved. The codes documented in this report are preliminary and upon revenue accountant review may be revised to meet current compliance requirements. Hussain Monroe DO 02/23/2025 10:58:58 AM This report has been signed electronically. Number of Addenda: 0 Note Initiated On: 02/23/2025 10:13 AM
--- NOTE | 2025-02-23 11:01 | OP.COLON_ITS ---
Patient Name: Jenae Rodriguez Procedure Date: 02/23/2025 10:29 AM Date of : 1980 Age: 44 Procedure: Colonoscopy Indications: Screening for colorectal malignant neoplasm Providers: Hussain Monroe DO Referring MD: Arianna Robert Md Medicines: Monitored Anesthesia Care Patient Profile: This is a 44 year old female. Refer to note in patient chart for documentation of history and physical. Patient has symptoms of acute heartburn and chronic heartburn. Last Colonoscopy: none. The patient's first colonoscopy is today. Complications: No immediate complications. Procedure: Pre-Anesthesia Assessment: - Prior to the procedure, a History and Physical was performed, and patient medications and allergies were reviewed. The patient is competent. The risks and benefits of the procedure and the sedation options and risks were discussed with the patient. All questions were answered and informed consent was obtained. Patient identification and proposed procedure were verified by the physician in the pre-procedure area. Mental Status Examination: alert and oriented. Airway Examination: normal oropharyngeal airway and neck mobility. Respiratory Examination: clear to auscultation. CV Examination: normal. Prophylactic Antibiotics: The patient does not require prophylactic antibiotics. Prior Anticoagulants: The patient has taken no anticoagulant or antiplatelet agents except for NSAID medication. ASA Grade Assessment: II - A patient with mild systemic disease. After reviewing the risks and benefits, the patient was deemed in satisfactory condition to undergo the procedure. The anesthesia plan was to use monitored anesthesia care (MAC). Immediately prior to administration of medications, the patient was re-assessed for adequacy to receive sedatives. The heart rate, respiratory rate, oxygen saturations, blood pressure, adequacy of pulmonary ventilation, and response to care were monitored throughout the procedure. The physical status of the patient was re-assessed after the procedure. After I obtained informed consent, the scope was passed under direct vision. Throughout the procedure, the patient's blood pressure, pulse, and oxygen saturations were monitored continuously. The Colonoscope was introduced through the anus and advanced to the cecum, identified by appendiceal orifice and ileocecal valve. The colonoscopy was performed without difficulty. The patient tolerated the procedure well. The quality of the bowel preparation was adequate. The ileocecal valve, appendiceal orifice, and rectum were photographed. Scope In: 10:30:39 AM Scope Withdrawal Time 0 hours 10 minutes 46 seconds Scope Out: 10:45:55 AM Total Procedure Duration Time 0 hours 15 minutes 16 seconds Findings: The perianal and digital rectal examinations were normal. Pertinent negatives include normal sphincter tone. A 5 mm polyp was found in the hepatic flexure. The polyp was sessile. The polyp was removed with a jumbo cold forceps. Resection and retrieval were complete. Verification of patient identification for the specimen was done. Estimated blood loss was minimal. Many small-mouthed diverticula were found in the recto-sigmoid colon and sigmoid colon. Impression: - One 5 mm polyp at the hepatic flexure, removed with a jumbo cold forceps. Resected and retrieved. - Diverticulosis in the recto-sigmoid colon and in the sigmoid colon. Recommendation: - Discharge patient to home. - Resume previous diet. - Continue present medications. - Await pathology results. - Repeat colonoscopy in 5 years for surveillance. Procedure Code(s): --- Professional --- 82727, Colonoscopy, flexible; with biopsy, single or multiple CPT copyright 2021 [employer]. All rights reserved. The codes documented in this report are preliminary and upon wellness program administrator review may be revised to meet current compliance requirements. Hussain Monroe DO 02/23/2025 11:00:58 AM This report has been signed electronically. Number of Addenda: 0 Note Initiated On: 02/23/2025 10:29 AM
--- NOTE | 2025-02-23 11:01 | OP.CCLET_ITS ---
02/23/2025 Arianna Robert Md Re : Colonoscopy procedure for Jenae Rodriguez Dear Yesica This procedure was performed on January. My impressions and recommendations are as follows: Impressions : - One 5 mm polyp at the hepatic flexure, removed with a jumbo cold forceps. Resected and retrieved. - Diverticulosis in the recto-sigmoid colon and in the sigmoid colon. Recommendations : - Discharge patient to home. - Resume previous diet. - Continue present medications. - Await pathology results. - Repeat colonoscopy in 5 years for surveillance. My findings are described in the full procedure note, which is enclosed. If I can be of further assistance, please feel free to contact me at . Sincerely, Hussain Monroe, 02/23/2025 11:00:58 AM This report has been signed electronically.
== END 2025-02-23 11:49 | disposition home or self-care (01) ==
LOC: EN 08:57 → AC 08:59
PROVIDERS: Anesthesiology; PCP Internal Medicine; Referring Provider Internal Medicine; Visit Provider Internal Medicine Gastroenterology
PROC: 0DJD8ZZ Inspection of Lower Intestinal Tract, Via Natural or Artificial Opening Endoscopic (ICD-10-PCS; CPT 45378; principal; 2025-02-23 09:55)
DX: Z12.11 Encounter for screening for malignant neoplasm of colon (principal); K57.30 Diverticulosis of large intestine without perforation or abscess without bleeding; K21.00 Gastro-esophageal reflux disease with esophagitis, without bleeding; R53.83 Other fatigue; D12.3 Benign neoplasm of transverse colon
CPT/HCPCS: 45380; 43239; 81025; 88305; 88312